=== PATIENT | male | born 1935 | race Caucasian/White ===

== ENCOUNTER 2018-09-26 12:23 | Inpatient (IN) ==
[2018-09-26] MEDS ORDERED: Nitroglycerin 0.4 MG TAB.SUBL SL PRN (15:25)
[2018-09-27] MEDS: Cyanocobalamin (B-12) 1,000 MCG TABLET PO SCH (08:45)
[2018-09-27] MEDS ORDERED: Aspirin 81 MG TAB.CHEW PO SCH (09:00)
[2018-09-27] MEDS: Budesonide/Formoterol 80/4.5 1 PUFF INH IH SCH (09:02)
--- NOTE | 2018-09-27 18:23 | Internal Med History&Physical ---
Date of Encounter: 09/27/18 Time of Encounter: 17:50 Assessment and Plan (1) Compression fracture of T12 vertebra Current visit: No Status: Acute He denies significant back pain at present time. Vitamin D level will be checked. Qualifiers: Encounter type: initial encounter Qualified Code(s): S22.080A - Wedge compression fracture of T11-T12 vertebra, initial encounter for closed fracture (2) Pancytopenia Current visit: Yes Status: Acute Duration unknown. Suspect underlying bone marrow disease may be present. Referral to hematology/oncology can be made after swing bed stay. Anemia testing will be ordered. (3) Conjunctivitis Current visit: Yes Status: Acute TobraDex eyedrops will be given. Qualifiers: Conjunctivitis type: unspecified Laterality: left Qualified Code(s): H10.9 - Unspecified conjunctivitis (4) Elevated CK Current visit: Yes Status: Acute CK was 4415 on 09/23/2018. Recheck in a.m. (5) Hypokalemia Current visit: Yes Status: Acute Potassium level was 3.3 yesterday. Supplemental potassium will be given and labs will be monitored. (6) CAD (coronary artery disease), [place] coronary artery Current visit: No Status: Chronic Continue Lipitor. He denies aspirin use. Qualifiers: [place] vs. transplanted heart: [place] heart Associated angina: with unspecified angina Qualified Code(s): I25.119 - Atherosclerotic heart disease of [place] coronary artery with unspecified angina pectoris (7) Hypothyroid Current visit: No Status: Chronic TSH was minimally elevated at 6.133 on 09/19/2018. Recheck in a.m. Qualifiers: Hypothyroidism type: unspecified Qualified Code(s): E03.9 - Hypothyroidism, unspecified (8) Parkinson disease Current visit: No Status: Chronic Observe without further Rx. (9) Bilateral foot-drop Current visit: Yes Status: Acute He has been given AFO splints by therapist. Continue PT/OT intervention. (10) Hyperglycemia Current visit: Yes Status: Acute Present on most labs since March 2014. Check hemoglobin A1c in a.m. Internal Medicine - H&P: HPI Chief complaint: Falls with T12 compression fracture Admitted From: Hospital to Hospital Transfer Plans for Post Hospital Care: Home History of present illness: Mr. Noonan is a 82 year old male who was hospitalized at [facility] September 22- after multiple falls at home over preceding days. He was found to have acute T12 compression fracture with 50% vertebral body height loss. He was seen by neurology and spine surgery who felt the falls were secondary to foot drop. He was discharged [facility] swing bed for ongoing care needs. Yeyo skeletal history is significant for documented left foot drop for several years. He denied known right foot drop. 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 He has had bilateral shoulder injuries from falls in the past with replacement right shoulder and repair of left shoulder. He denies gout or other bone joint or muscle disorders. Neurologic history is significant for Parkinson's disease diagnosed 2 years ago. He reports he was tried on 3 medications without improvement so all parkinsonian meds have been discontinued. He reports numbness and weakness in his legs. He typically uses a walker for ambulation at home. Reports over 12 falls have occurred in the last 18 months. Past Med Surg Social Fam HX - Past Medical History Medical history: coronary artery disease, myocardial infarction Additional medical history: parkinsons Psychiatric history: no psych history - Past Surgical History Additional surgical history: CABG, TRIPLE AND A QUINTUPLE - Social History Smoking Status: Never smoker Smokeless Tobacco Status: No Alcohol use: none Drug use: none - Family History Mother Hx Family Cardiac Disorders: Yes (CABG) Internal Medicine - H&P: Meds Fluticasone/Salmeterol [Advair 100-50 Diskus] 1 puff IH DAILY 12/17/15 [History] Montelukast [Singulair] 10 mg PO DAILY 12/17/15 [History] Nitroglycerin [Nitrostat] 0.4 mg SL Q5M PRN 12/17/15 [History] Cyanocobalamin (Vitamin B-12) [Vitamin B12] 1,000 mcg PO DAILY 09/22/18 [History] Levothyroxine [Synthroid] 125 mcg PO DAILY 09/22/18 [History] Pravastatin Sodium [Pravachol] 40 mg PO DAILY 09/22/18 [History] Allergy/AdvReac Type Severity Reaction Status Date / Time onabotulinumtoxinA Allergy Weakness Verified 06/20/16 11:23 [From Botox] rosuvastatin [From Crestor] Allergy Weakness Verified 06/20/16 11:23 All Systems PM: A 10-system review of systems was performed and is negative for pertinent findings except as documented above in the HPI. 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 He denies hypertension heart failure DVT or pulmonary embolus. Limited echo 12/17/2015 showed LVEF of 60%. Respiratory: He is a lifelong nonsmoker denies chronic lung disease GI: He denies disorders of his liver gallbladder or exocrine pancreas : He has frequent urination. He denies kidney bladder prostate disorders otherwise. Neurologic: As per history of present illness Endocrine: He has hypothyroidism. He denies known diabetes. He is on a statin drug but is uncertain if it is for hyperlipidemia or CAD. Hematology/oncology: He was unaware he had pancytopenia on labs during his recent [facility] stay. Review of records show anemia and leukopenia present on most labs since March 2014. He denies known malignancies. He states he was exposed to agent orange during duty in [employer] [facility] in the 1960s. Psychiatric: He denies anxiety depression or other mental health issues. Musculoskeletal: As per history of present illness - Constitutional Vitals: Temp Pulse Resp BP Pulse Ox 98.2 F 52 18 114/64 92 09/27/18 06:51 09/27/18 06:51 09/27/18 09:03 09/27/18 06:51 09/27/18 09:03 Exam: Gen.: He is well-developed well-nourished male resting comfortably in bed who appears in no acute distress HEENT: Head is atraumatic and normocephalic. Eyes: EOMI. There is no scleral icterus. He has become purulent drainage in the medial canthus of the left eye. Mouth: Mucosa is moist Neck: Supple and nontender. There is no thyromegaly or adenopathy noted. Heart: Regular without murmurs gallops or ectopics Lungs: No wheezes or crackles are heard. Abdomen: Soft and nontender. No masses or guarding are noted. Extremities: There is no cyanosis edema or clubbing noted. Dorsalis pedis and posterior tibial pulses are trace palpable bilaterally. His feet are cool to touch. 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 He has wasting of intrinsic hand muscles bilaterally. Neurologic: Mental status: He is talkative and a good historian. Cranial nerves: Smile is symmetric. Forehead wrinkles bilaterally. Tongue protrudes midline. EOMI. Motor: He has rhythmic tremor of his left hand consistent with Parkinsonian tremor. There is very minimal cogwheeling and rigidity noted on passive range of motion of his wrist and elbows. There is no jaw tremor. Cerebellar: Finger to nose is intact bilaterally. Skin: Warm and dry
[2018-09-27] MEDS: Tobramycin/Dex Opth DROPS 2.5 ML BOTTLE LEFT EYE SCH (20:19)
[2018-09-28] MEDS: Tobramycin/Dex Opth DROPS 2.5 ML BOTTLE LEFT EYE SCH ×3 (03:19→16:03)
[2018-09-28 05:41] LABS: Eosinophils # 0.1 K/mcL (0.0-0.6); Eosinophils % 2.4 %; Hematocrit 34.4 % (37.5-50.1); Lymphocytes # 1.2 K/mcL (0.6-4.6); Lymphocytes % 40.4 %; Mean Corpuscular Hemoglobin 27.8 pg (28.0-33.3); Mean Corpuscular Volume 87.1 fL (83.0-100.0); Mean Platelet Volume 11.3 fL (9.4-12.4); Monocytes # 0.8 K/mcL (0.0-1.3); Monocytes % 28.8 %; Neutrophils # 0.8 K/mcL (1.6-8.9); Platelet Count 104 K/mcL (140-400); Red Blood Count 3.95 M/mcL (4.19-5.50); Red Cell Distribution Width 17.8 % (11.5-14.5); Segmented Neutrophils % 26.4 %; White Blood Count 2.9 K/mcL (4.3-11.1)
[2018-09-28 05:56] LABS: Alanine Aminotransferase 25 Units/L (7-52); Albumin 3.4 g/dL (3.5-5.7); Albumin/Globulin Ratio 1.5 (1.1-2.2); Alkaline Phosphatase 80 Units/L (34-104); Aspartate Amino Transferase 39 Units/L (13-39); BUN/Creatinine Ratio 24 (6-26); Bilirubin,Total 0.8 mg/dL (0.3-1.0); Blood Urea Nitrogen 17 mg/dL (8-23); Calcium 8.4 mg/dL (8.6-10.3); Carbon Dioxide 31 mEq/L (23-29); Chloride 103 mEq/L (98-107); Creatine Kinase 185 Units/L (30-223); Globulin 2.2 g/dL (2.4-3.5); Glucose 117 mg/dL (70-105); Magnesium 2.2 mg/dL (1.6-2.6); Osmolality,Calculated 293 (280-300); Potassium 3.8 mEq/L (3.5-5.1); Sodium 140 mEq/L (136-145); Total Protein 5.6 g/dL (6.4-8.9); eGFR For African Americans > 60 (> 60); eGFR For Non-African Americans > 60 (> 60)
[2018-09-28 06:06] LABS: Thyroid Stimulating Hormone 7.425 mcIU/mL (0.340-5.600)
[2018-09-28 06:16] LABS: Platelet Estimate Decreased (Normal)
[2018-09-28] MEDS: Cyanocobalamin (B-12) 1,000 MCG TABLET PO SCH (08:06)
[2018-09-28 09:05] LABS: Estimated Average Glucose 103 mg/dl
[2018-09-28 09:08] LABS: % Iron Saturation 31 % (20-55); Iron 96 mcg/dL (65-175); Transferrin 223 mg/dL (203-362)
[2018-09-28 09:28] LABS: Ferritin 254 ng/mL (20-250)
[2018-09-28] MEDS: Budesonide/Formoterol 80/4.5 1 PUFF INH IH SCH (10:43)
[2018-09-28 11:19] LABS: Folate 7.1 ng/mL (3.0-16.0)
--- NOTE | 2018-09-28 17:21 | Internal Med Progress Note ---
Date of Encounter: 09/28/18 Time of Encounter: 17:13 - Assessment and plan (1) Compression fracture of T12 vertebra Current Visit: No Status: Acute Assessment and plan: September 28. He denies pain. Vitamin D level returned low at 18. Supplemental vitamin D will be given. Qualifiers: Encounter type: initial encounter Qualified Code(s): S22.080A - Wedge compression fracture of T11-T12 vertebra, initial encounter for closed fracture (2) Pancytopenia Current Visit: Yes Status: Acute Assessment and plan: September 28. I told him again he had pancytopenia and that it would be reasonable to have evaluation by hematology/oncology after swing bed stay. (3) Conjunctivitis Current Visit: Yes Status: Acute Assessment and plan: September 28. Continue TobraDex Qualifiers: Conjunctivitis type: unspecified Laterality: left Qualified Code(s): H10.9 - Unspecified conjunctivitis (4) Elevated CK Current Visit: Yes Status: Acute Assessment and plan: September 28. CK normal at 183 today. (5) Hypokalemia Current Visit: Yes Status: Acute Assessment and plan: September 28. Potassium normal at 3.8 now. (6) CAD (coronary artery disease), [place] coronary artery Current Visit: No Status: Chronic Assessment and plan: September 28. Continue Lipitor. Qualifiers: [place] vs. transplanted heart: [place] heart Associated angina: with unspecified angina Qualified Code(s): I25.119 - Atherosclerotic heart disease of [place] coronary artery with unspecified angina pectoris (7) Hypothyroid Current Visit: No Status: Chronic Assessment and plan: September 28. TSH further elevated at 7.425. Synthroid dose will be increased to 150 g daily Qualifiers: Hypothyroidism type: unspecified Qualified Code(s): E03.9 - Hypothyroidism, unspecified (8) Parkinson disease Current Visit: No Status: Chronic Assessment and plan: September 28. As per neurologist. (9) Bilateral foot-drop Current Visit: Yes Status: Acute Assessment and plan: September 28. Continue AFO splints and PT/OT intervention. Neurology can evaluate for EMG/NCS. (10) Hyperglycemia Current Visit: Yes Status: Acute Assessment and plan: September 28. Hemoglobin A1c satisfactory at 5.2%. - Subjective Interval history: September 28. He has no new complaints. - Constitutional Vitals: Temp Pulse Resp BP Pulse Ox 97.7 F 20 18 124/68 97 09/28/18 08:24 09/28/18 08:24 09/28/18 10:43 09/28/18 08:24 09/28/18 10:43 Exam: He is sitting on the side of bed resting comfortably and appears in no acute distress. His affect is bright and cheerful. Left hand tremor is unchanged. I reviewed his medications and lab results. Internal Medicine: Result - Labs CBC & Chem 7: 09/28/18 04:54 09/28/18 04:54 Labs: Short CBC 09/28/18 Range/Units 04:54 WBC 2.9 L (4.3-11.1) K/mcL Hgb 11.0 L (12.9-16.9) g/dL Hct 34.4 L (37.5-50.1) % Plt Count 104 L (140-400) K/mcL Neutrophils # 0.8 L (1.6-8.9) K/mcL BMP 09/28/18 04:54 Sodium 140 Potassium 3.8 Chloride 103 Carbon Dioxide 31 H BUN 17 Creatinine 0.71 Glucose 117 H Calcium 8.4 L Liver Function 09/28/18 Range/Units 04:54 Total Bilirubin 0.8 (0.3-1.0) mg/dL AST 39 (13-39) Units/L ALT 25 (7-52) Units/L Alkaline Phosphatase 80 (34-104) Units/L Albumin 3.4 L (3.5-5.7) g/dL Consult Discharge Plan - Plan Referrals: NONE,PCP [Primary Care Provider] - 1 week
[2018-09-29] MEDS: Tobramycin/Dex Opth DROPS 2.5 ML BOTTLE LEFT EYE SCH ×3 (03:55→17:32)
[2018-09-29] MEDS: Cyanocobalamin (B-12) 1,000 MCG TABLET PO SCH (08:35)
[2018-09-29] MEDS: Cholecalciferol (D-3) 1,000 UNIT (25MCG) TABLET PO SCH (08:35)
[2018-09-29] MEDS: Budesonide/Formoterol 80/4.5 1 PUFF INH IH SCH (10:47)
[2018-09-30] MEDS: Tobramycin/Dex Opth DROPS 2.5 ML BOTTLE LEFT EYE SCH ×3 (03:46→17:52)
[2018-09-30] MEDS: Cyanocobalamin (B-12) 1,000 MCG TABLET PO SCH (08:01)
[2018-09-30] MEDS: Cholecalciferol (D-3) 1,000 UNIT (25MCG) TABLET PO SCH (08:01)
[2018-09-30] MEDS: Budesonide/Formoterol 80/4.5 1 PUFF INH IH SCH (10:45)
--- NOTE | 2018-09-30 16:06 | Internal Med Progress Note ---
Date of Encounter: 09/30/18 Time of Encounter: 15:58 - Assessment and plan (1) Compression fracture of T12 vertebra Current Visit: No Status: Acute Assessment and plan: September 28. He denies pain. Vitamin D level returned low at 18. Supplemental vitamin D will be given. Qualifiers: Encounter type: initial encounter Qualified Code(s): S22.080A - Wedge compression fracture of T11-T12 vertebra, initial encounter for closed fracture (2) Pancytopenia Current Visit: Yes Status: Acute Assessment and plan: September 28. I told him again he had pancytopenia and that it would be reasonable to have evaluation by hematology/oncology after swing bed stay. (3) Conjunctivitis Current Visit: Yes Status: Acute Assessment and plan: September 28. Continue TobraDex Qualifiers: Conjunctivitis type: unspecified Laterality: left Qualified Code(s): H10.9 - Unspecified conjunctivitis (4) Elevated CK Current Visit: Yes Status: Acute Assessment and plan: September 28. CK normal at 183 today. (5) Hypokalemia Current Visit: Yes Status: Acute Assessment and plan: September 28. Potassium normal at 3.8 now. (6) CAD (coronary artery disease), [place] coronary artery Current Visit: No Status: Chronic Assessment and plan: September 28. Continue Lipitor. September 30. Continue Lipitor and Plavix. He reports epistaxis occurred when taking aspirin. Qualifiers: [place] vs. transplanted heart: [place] heart Associated angina: with unspecified angina Qualified Code(s): I25.119 - Atherosclerotic heart disease of [place] coronary artery with unspecified angina pectoris (7) Hypothyroid Current Visit: No Status: Chronic Assessment and plan: September 28. TSH further elevated at 7.425. Synthroid dose will be increased to 150 g daily Qualifiers: Hypothyroidism type: unspecified Qualified Code(s): E03.9 - Hypothyroidism, unspecified (8) Parkinson disease Current Visit: No Status: Chronic Assessment and plan: September 28. As per neurologist. (9) Bilateral foot-drop Current Visit: Yes Status: Acute Assessment and plan: September 28. Continue AFO splints and PT/OT intervention. Neurology can evaluate for EMG/NCS. (10) Hyperglycemia Current Visit: Yes Status: Acute Assessment and plan: September 28. Hemoglobin A1c satisfactory at 5.2%. - Subjective Interval history: September 28. He has no new complaints. September 30. He has no new complaints. He feels he is making progress in therapy. - Constitutional Vitals: Temp Pulse Resp BP Pulse Ox 97.7 F 55 14 107/58 96 09/30/18 06:36 09/30/18 06:36 09/30/18 10:45 09/30/18 06:36 09/30/18 10:45 Exam: He is resting comfortably in bed and appears in no acute distress. His affect is bright and cheerful. I reviewed his medications and past lab results. Internal Medicine: Result - Labs CBC & Chem 7: 09/28/18 04:54 09/28/18 04:54 Consult Discharge Plan - Plan Referrals: NONE,PCP [Primary Care Provider] - 1 week
[2018-10-01] MEDS: Tobramycin/Dex Opth DROPS 2.5 ML BOTTLE LEFT EYE SCH ×3 (04:03→17:18)
[2018-10-01] MEDS: Cholecalciferol (D-3) 1,000 UNIT (25MCG) TABLET PO SCH (09:26)
[2018-10-01] MEDS: Cyanocobalamin (B-12) 1,000 MCG TABLET PO SCH (09:26)
[2018-10-01] MEDS: Budesonide/Formoterol 80/4.5 1 PUFF INH IH SCH (09:42)
[2018-10-01] MEDS ORDERED: Acetaminophen 325 MG TABLET PO PRN (15:06)
[2018-10-02] MEDS: Tobramycin/Dex Opth DROPS 2.5 ML BOTTLE LEFT EYE SCH ×3 (03:45→17:59)
[2018-10-02] MEDS: Cyanocobalamin (B-12) 1,000 MCG TABLET PO SCH (08:57)
[2018-10-02] MEDS: Cholecalciferol (D-3) 1,000 UNIT (25MCG) TABLET PO SCH (08:57)
[2018-10-02] MEDS: Budesonide/Formoterol 80/4.5 1 PUFF INH IH SCH (09:04)
--- NOTE | 2018-10-02 16:21 | Internal Med Progress Note ---
Date of Encounter: 10/02/18 Time of Encounter: 16:14 - Assessment and plan (1) Compression fracture of T12 vertebra Current Visit: No Status: Acute Assessment and plan: September 28. He denies pain. Vitamin D level returned low at 18. Supplemental vitamin D will be given. Qualifiers: Encounter type: initial encounter Qualified Code(s): S22.080A - Wedge compression fracture of T11-T12 vertebra, initial encounter for closed fracture (2) Pancytopenia Current Visit: Yes Status: Acute Assessment and plan: September 28. I told him again he had pancytopenia and that it would be reasonable to have evaluation by hematology/oncology after swing bed stay. (3) Conjunctivitis Current Visit: Yes Status: Acute Assessment and plan: September 28. Continue TobraDex Qualifiers: Conjunctivitis type: unspecified Laterality: left Qualified Code(s): H10.9 - Unspecified conjunctivitis (4) Elevated CK Current Visit: Yes Status: Acute Assessment and plan: September 28. CK normal at 183 today. (5) Hypokalemia Current Visit: Yes Status: Acute Assessment and plan: September 28. Potassium normal at 3.8 now. (6) CAD (coronary artery disease), [place] coronary artery Current Visit: No Status: Chronic Assessment and plan: September 28. Continue Lipitor. September 30. Continue Lipitor and Plavix. He reports epistaxis occurred when taking aspirin. Qualifiers: [place] vs. transplanted heart: [place] heart Associated angina: with unspecified angina Qualified Code(s): I25.119 - Atherosclerotic heart disease of [place] coronary artery with unspecified angina pectoris (7) Hypothyroid Current Visit: No Status: Chronic Assessment and plan: September 28. TSH further elevated at 7.425. Synthroid dose will be increased to 150 g daily Qualifiers: Hypothyroidism type: unspecified Qualified Code(s): E03.9 - Hypothyroidism, unspecified (8) Parkinson disease Current Visit: No Status: Chronic Assessment and plan: September 28. As per neurologist. (9) Bilateral foot-drop Current Visit: Yes Status: Acute Assessment and plan: September 28. Continue AFO splints and PT/OT intervention. Neurology can evaluate for EMG/NCS. (10) Hyperglycemia Current Visit: Yes Status: Acute Assessment and plan: September 28. Hemoglobin A1c satisfactory at 5.2%. - Subjective Interval history: September 28. He has no new complaints. September 30. He has no new complaints. He feels he is making progress in therapy. October 02. He has no new complaints and feels well. He anticipates discharge home October 04. - Constitutional Vitals: Temp Pulse Resp BP Pulse Ox 98.0 F 56 18 94/63 97 10/02/18 06:42 10/02/18 06:42 10/02/18 09:04 10/02/18 06:42 10/02/18 09:04 Exam: He is resting comfortably in bed and appears in no acute distress. His affect is bright and cheerful. I reviewed his medications and lab results. Internal Medicine: Result - Labs CBC & Chem 7: 09/28/18 04:54 09/28/18 04:54 Consult Discharge Plan - Plan Referrals: NONE,PCP [Primary Care Provider] - 1 week
[2018-10-03] MEDS: Tobramycin/Dex Opth DROPS 2.5 ML BOTTLE LEFT EYE SCH ×3 (03:34→17:27)
[2018-10-03] MEDS: Cyanocobalamin (B-12) 1,000 MCG TABLET PO SCH (09:12)
[2018-10-03] MEDS: Cholecalciferol (D-3) 1,000 UNIT (25MCG) TABLET PO SCH (09:12)
[2018-10-03] MEDS: Budesonide/Formoterol 80/4.5 1 PUFF INH IH SCH (10:28)
[2018-10-04] MEDS: Tobramycin/Dex Opth DROPS 2.5 ML BOTTLE LEFT EYE SCH (04:30)
[2018-10-04 07:24] VITALS: BP 127/67
[2018-10-04] MEDS: Cyanocobalamin (B-12) 1,000 MCG TABLET PO SCH (07:47)
[2018-10-04] MEDS: Cholecalciferol (D-3) 1,000 UNIT (25MCG) TABLET PO SCH (07:47)
[2018-10-04] MEDS: Budesonide/Formoterol 80/4.5 1 PUFF INH IH SCH (09:53)
--- NOTE | 2018-10-04 09:59 | Discharge Summary ---
Date of Encounter: 10/04/18 Time of Encounter: 09:51 - Discharge Diagnosis (1) Compression fracture of T12 vertebra Priority: Primary Status: Acute Qualifiers: Encounter type: initial encounter Qualified Code(s): S22.080A - Wedge compression fracture of T11-T12 vertebra, initial encounter for closed fracture (2) Pancytopenia Priority: Secondary Status: Acute (3) Conjunctivitis Priority: Secondary Status: Acute Qualifiers: Conjunctivitis type: unspecified Laterality: left Qualified Code(s): H10.9 - Unspecified conjunctivitis (4) Elevated CK Priority: Secondary Status: Resolved (5) Hypokalemia Priority: Secondary Status: Acute (6) CAD (coronary artery disease), [place] coronary artery Priority: Secondary Status: Chronic Qualifiers: [place] vs. transplanted heart: [place] heart Associated angina: with unspecified angina Qualified Code(s): I25.119 - Atherosclerotic heart disease of [place] coronary artery with unspecified angina pectoris (7) Hypothyroid Priority: Secondary Status: Chronic Qualifiers: Hypothyroidism type: unspecified Qualified Code(s): E03.9 - Hypothyroidism, unspecified (8) Parkinson disease Priority: Secondary Status: Chronic (9) Bilateral foot-drop Priority: Secondary Status: Acute (10) Hyperglycemia Priority: Secondary Status: Acute Hospital course: Mr. Noonan is a 82 year old male who was hospitalized at [facility] September 22- after multiple falls at home over preceding days. He was found to have acute T12 compression fracture with 50% vertebral body height loss. He was seen by neurology and spine surgery who felt the falls were secondary to foot drop. He was discharged [facility] swing bed for ongoing care needs. Initial orders were written by the discharging physician at [facility]. I saw him September 27 and performed a swing bed history and physical. He had physical therapy and occupational therapy evaluations with ongoing intervention. He received AFO splints for foot drop. He will follow with neurology to further evaluate with EMG/NCS. Vitamin D level returned low at 18. Supplemental vitamin D was given. He remained asymptomatic from T12 compression fracture. Follow-up labs showed pancytopenia persisting. I recommended he be evaluated by hematology/oncology. Conjunctivitis resolved with TobraDex use. Follow-up CK showed normalization at 183. Supplemental potassium was given and hypokalemia resolved. TSH returned elevated 7.425. Synthroid dose was increased to 150 g daily. Hemoglobin A1c return satisfactory at 5.2%. On October 04 he felt stable for discharge home. He will follow with his PCP Dr. Colby within 1 week. Home health services will be ordered. - Time Spent with Patient Total time spent providing and/or coordinating discharge services: - Discharge Medications Prescriptions: New Levothyroxine [Synthroid] 150 mcg PO DAILY@0630 #30 tablet Cholecalciferol (D-3) [Vitamin D] 1,000 unit PO DAILY #30 tablet Continued Nitroglycerin [Nitrostat] 0.4 mg SL Q5M PRN PRN Reason: Chest Pain Fluticasone/Salmeterol [Advair 100-50 Diskus] 1 puff IH DAILY Montelukast [Singulair] 10 mg PO DAILY Cyanocobalamin (Vitamin B-12) [Vitamin B12] 1,000 mcg PO DAILY Pravastatin Sodium [Pravachol] 40 mg PO DAILY Discontinued Levothyroxine [Synthroid] 125 mcg PO DAILY Home Medications: Fluticasone/Salmeterol [Advair 100-50 Diskus] 1 puff IH DAILY 12/17/15 [History] Montelukast [Singulair] 10 mg PO DAILY 12/17/15 [History] Nitroglycerin [Nitrostat] 0.4 mg SL Q5M PRN 12/17/15 [History] Cyanocobalamin (Vitamin B-12) [Vitamin B12] 1,000 mcg PO DAILY 09/22/18 [History] Pravastatin Sodium [Pravachol] 40 mg PO DAILY 09/22/18 [History] Cholecalciferol (D-3) [Vitamin D] 1,000 unit PO DAILY #30 tablet 10/04/18 [Rx] Levothyroxine [Synthroid] 150 mcg PO DAILY@0630 #30 tablet 10/04/18 [Rx] Allergies/Adverse Reactions: Allergy/AdvReac Type Severity Reaction Status Date / Time onabotulinumtoxinA Allergy Weakness Verified 06/20/16 11:23 [From Botox] rosuvastatin [From Crestor] Allergy Weakness Verified 06/20/16 11:23 Date of admission: 09/26/18 15:34 Primary care physician: PCP NONE Consults: 09/26/18 15:20 Consult to Occupational Therapy [CONS] Routine Comment: Swing bed Reason for Consult: General weakness and fall, T12 compression fracture Does patient have active BEDREST order?: No Is patient medically & hemodynamically stable?: Yes Consult to Physical Therapy [CONS] Routine Comment: Swing bed Reason for Consult: General weakness and fall, T12 compression fracture Does patient have active BEDREST order?: No Is patient medically & hemodynamically stable?: Yes Consult to Paper Box Maker [CONS] Routine Reason for SW Consult: Swing bed - Constitutional Vitals: Temp Pulse Resp BP Pulse Ox 97.6 F 58 16 127/67 96 10/04/18 07:23 10/04/18 07:23 10/04/18 07:23 10/04/18 07:23 10/04/18 07:23 - Patient Status Disposition: Home Health Service - Discharge Instructions Follow Up With: Nelson Colby DO [Partnered Physician] - 1 week - Diet and Activity Activity: as per physical therapy Diet: regular diet
--- NOTE | 2018-10-04 10:06 | Physician Discharge Referral ---
Home Health/Hosp Referral Info Transfer to: Home Health Attending Provider: Jaciel Provider in Charge Post Discharge: PCP (Lasha) - Diagnosis (1) Compression fracture of T12 vertebra Priority: Primary Status: Acute (2) Pancytopenia Priority: Secondary Status: Acute (3) Conjunctivitis Priority: Secondary Status: Resolved (4) Elevated CK Priority: Secondary Status: Resolved (5) Hypokalemia Priority: Secondary Status: Resolved (6) CAD (coronary artery disease), [place] coronary artery Priority: Secondary Status: Chronic (7) Hypothyroid Priority: Secondary Status: Chronic (8) Parkinson disease Priority: Secondary Status: Chronic (9) Bilateral foot-drop Priority: Secondary Status: Chronic (10) Hyperglycemia Priority: Secondary Status: Acute - Respiratory Orders Smoking Cessation: Smoking cessation has been advised. For more information, call the [employer] Tobacco Quit Line at 7-510-OEDF-NOW. - Diet/Nutrition Diet/Nutrition Orders: Regular - Activity Activity Orders: Walker - Services Needed Following services are medically necessary services: Nursing, Home Health Aide, Physical Therapy, Occupational Therapy - Transfer Medications Prescriptions: Levothyroxine [Synthroid] 150 mcg PO DAILY@0630 #30 tablet Cholecalciferol (D-3) [Vitamin D] 1,000 unit PO DAILY #30 tablet Home Medications: Fluticasone/Salmeterol [Advair 100-50 Diskus] 1 puff IH DAILY 12/17/15 [History] Montelukast [Singulair] 10 mg PO DAILY 12/17/15 [History] Nitroglycerin [Nitrostat] 0.4 mg SL Q5M PRN 12/17/15 [History] Cyanocobalamin (Vitamin B-12) [Vitamin B12] 1,000 mcg PO DAILY 09/22/18 [History] Pravastatin Sodium [Pravachol] 40 mg PO DAILY 09/22/18 [History] Cholecalciferol (D-3) [Vitamin D] 1,000 unit PO DAILY #30 tablet 10/04/18 [Rx] Levothyroxine [Synthroid] 150 mcg PO DAILY@0630 #30 tablet 10/04/18 [Rx] Allergies/Adverse Reactions: Allergy/AdvReac Type Severity Reaction Status Date / Time onabotulinumtoxinA Allergy Weakness Verified 06/20/16 11:23 [From Botox] rosuvastatin [From Crestor] Allergy Weakness Verified 06/20/16 11:23 Certification: Further, I certify that my clinical findings support that this patient is homebound (i.e. absences from home require considerable and taxing effort and are for medical reasons or [employer] services or infrequently or short duration when for other reasons) because: Homebound Reason: Leaving home requires considerable and taxing effort due to condition (Impaired walking ability with bilateral foot drop, T12 compression fracture) Attestation: My signature below is to certify that this patient is under my care and that I, or nurse practitioner, or a physician's assistant track coach working with me, has a [id number] encounter with this patient.
== END 2018-10-04 12:42 | disposition home health service (06) | DRG 560 ==
LOC: INPPIK 15:34
PROVIDERS: ADMIT Internal Medicine; ATTEND Internal Medicine